=== PATIENT | male | born 1945 | race Caucasian/White ===

== ENCOUNTER 2016-07-05 13:01 | Emergency (ER) | payer OTHER ==
[2016-07-05] MEDS ORDERED: ASPIRIN ONE (13:03)
[2016-07-05] MEDS ORDERED: ASPIRIN PO STA (13:08)
--- NOTE | 2016-07-05 13:17 | EKG Report ---
Test Performed on : 07/05/2016 1:02:08 PM Test Reason : CP Blood Pressure : / mmHG Vent. Rate : 087 BPM Atrial Rate : 087 BPM P-R Int : 112 ms QRS Dur : 098 ms QT Int : 382 ms P-R-T Axes : 019 -31 061 degrees QTc Int : 459 ms Normal sinus rhythm. Left axis deviation Low voltage QRS Incomplete right bundle branch block Cannot rule out Inferior infarct (cited on or before 14-FEB-2014) Abnormal ECG When compared with ECG of 14-FEB-2014 12:43, Questionable change in initial forces of Inferior leads T wave inversion no longer evident in Inferior leads Unconfirmed Result
[2016-07-05 13:18] LABS: MANUAL DIFF NEEDED? NO
[2016-07-05 13:24] LABS: BASO% 0.5 % (0.0-0.8); EOS# 0.04 X1000 (0.0-0.7); EOS% 0.6 % (0.0-10.0); HEMATOCRIT 44.9 % (42.0-52.0); HEMOGLOBIN 15.1 g/dL (14.0-18.0); IMM GRAN# 0.01 X1000 (0.0-0.04); IMM GRAN% 0.2 % (0.0-0.5); LYMPH# 1.91 X1000 (1.2-3.4); LYMPH% 29.3 % (20.5-51.1); MCH 29.8 PG (27-31); MCHC 33.6 g/dL (33-37); MCV 88.6 FL (81-99); MONO# 0.42 X1000 (0.11-0.59); MONO% 6.4 % (1.7-9.3); MPV 10.1 FL (7.4-10.4); PLT 198 X1000 (130-400); RBC 5.07 XMIL (4.7-6.1)
[2016-07-05 13:37] LABS: INR 0.97 (0.86-1.15); PROTIME 13.2 Seconds (12.1-15.5)
[2016-07-05 13:48] LABS: AGAP 14; ALBUMIN 4.5 g/dL (3.5-5.0); ALKALINE PHOSPHATASE 86 U/L (32-122); BUN 12 mg/dL (8-22); CALCIUM 10.1 mg/dL (8.8-10.2); CHLORIDE 100 mmol/L (98-107); CK PROFILE 85 U/L (24-204); COSMO 281; GOT 38 U/L (10-34); GPT 35 U/L (10-44); MAGNESIUM 2.1 mg/dL (1.5-2.7); SODIUM 140 mmol/L (136-145); TCO2 26 mmol/L (25-35); TOTAL PROTEIN 7.4 g/dL (6.3-8.3)
--- NOTE | 2016-07-05 13:49 | ED EKG INTERP ---
EKG Interpretation - EKG Time of EKG reading by physician:: 13:02 EKG Read and Signed by:: Titi Carrera EKG Interpretation (*Must complete 3 of following elements*): Abnormal (cannot rule out inferior infarct, age undetermined) Rate: 87 Rhythm: normal sinus rhythm Comments: left axis deviation; low voltage QRS; incomplete RBBB Attestation - Scribe Verification/Attestation Scribe:: Amalia Artis Acting as Scribe for:: Titi Carrera Scribe documention review:: This chart was documented by a scribe and accurately reflects the service the provider performed and the decisions made by the provider.
--- NOTE | 2016-07-05 14:14 | PROVIDER DOCUMENTATION ---
HPI-Chest Pain - General Source: patient, family () - History of Present Illness-CP Location: reports: epigastric Chest Pain Radiation: reports: no radiation Quality of Pain: reports: pressure Severity in ED: mild Onset/Duration: this morning Timing: gone now Context/Activities at Onset: reports: light activity Modifying Factors: improves with: nothing Associated Symptoms: reports: shortness of breath. denies: abdominal pain, back pain, diaphoresis, dizziness, edema, fatigue, fever/chills, headache, heartburn, nausea, rash, swelling/lump in chest, syncope, vomiting, weakness Nitro Today/Relief: no nitro taken today Aspirin Treatment Today: 81 mg x 1 Prior Chest Pain/Cardiac Workup: reports: heart attack Similar Symptoms Previously?: Yes Recently Seen Here or By Another Healthcare Provider: No <Amalia Artis - Last Filed: 07/05/16 17:54> <Alexus Marinelli - Last Filed: 07/05/16 17:59> <Titi Carrera - Last Filed: 07/05/16 18:03> - General Chief Complaint: Chest Pain Stated Complaint: CHEST PAIN Time Seen by Provider: 07/05/16 14:10 Allergies/Adverse Reactions: Patient Allergies Allergy/AdvReac Type Severity Reaction Status Date / Time amoxicillin [Amoxicillin] Allergy DIARRHEA Verified 07/05/16 13:06 Anesthetics - Amide Type Allergy Unknown Verified 07/05/16 13:06 Anesthetics - Kandi Type- Allergy Unknown Verified 07/05/16 13:06 Parabens [Anesthetics - Kandi Type] Home Medications: Home Medication List Medication Instructions Recorded Confirmed Last Taken Type Fexofenadine [Jeny] 60 mg PO DAILY PRN 12/01/13 09/18/15 12/01/13 History Naproxen Sodium [Aleve] 220 mg PO BID PRN 12/01/13 09/18/15 12/01/13 History Atorvastatin Calcium [Lipitor] 40 mg PO HS 07/16/15 09/18/15 Unknown History Metoprolol Tartrate 25 mg PO BID 07/16/15 09/18/15 Unknown History Prasugrel [Effient] 10 mg PO DAILY 07/16/15 09/18/15 Unknown History Lisinopril 10 mg PO DAILY 09/05/15 09/18/15 Unknown History Aspirin EC 81 mg PO DAILY 09/18/15 09/18/15 Unknown History Nitroglycerin [Nitrostat] 0.4 mg SL DIRECTED 09/18/15 09/18/15 Unknown History - History of Present Illness-CP Nature of Presenting Problem: Pt is 71 y/o M presents to the ED with chest pain. Pt states the pain is in his epigastric region. Pt denies radiation. Pt states he has had prior episodes of the pain but this episode is the worse. Pt states having a SD last year and having one stent placed. Pt states being sweaty and SOB. Pt states the pain started when he was going for his daily walk. Pt states having six prior episode of pain. (Amalia Artis) Review of Systems - Adult - REVIEW OF SYSTEMS - ADULT Constitutional: denies: chills, fever Eyes: denies: blurred vision, double vision Ears, Nose, Mouth & Throat: denies: ear pain, nose pain, throat pain Cardiovascular: reports: chest pain. denies: heart murmur, irregular heart rate Respiratory: denies: cough, shortness of breath, wheezing Gastrointestinal: denies: abdominal pain, diarrhea, nausea, vomiting Genitourinary: denies: dysuria, hematuria Musculoskeletal: denies: bone pain, joint pain, neck pain Integumentary: denies: hives, itching Neurological: denies: dizziness/vertigo, headache/migraines Psychiatric: reports: no symptoms reported Endocrine: reports: no symptoms reported Hematologic/Lymphatic: reports: no symptoms reported Allergic/Immunologic: reports: no symptoms reported All Other Systems: Reviewed and Negative <Amalia Artis - Last Filed: 07/05/16 17:54> Past History - Adult - PAST MEDICAL HISTORY-ADULT Review of Records: reports: Nursing Assessment Review, Medications Reviewed, Social history reviewed & non-contributory. Major Childhood Illnesses: reports: denies history Cardiovascular: reports: hyperlipidemia Respiratory: reports: denies history Gastrointestinal: reports: denies history Obstetrical/Gynecological: reports: denies history Genitourinary: reports: prostate cancer Musculoskeletal: reports: denies history Neurological: reports: denies history Endocrine/Immune: reports: denies history Other Conditions: reports: denies history - PRIOR SURGERIES/PROCEDURES Surgical/Procedure History: reports: orthopedic (extremity) (knee repair x2), other (colon surgery and prostate removed ) - IMMUNIZATION STATUS Childhood Immunizations: See Nurse Assessment Flu Vaccine: See Nurse Assessment - FAMILY HISTORY Family History: reviewed, not pertinent - SOCIAL HISTORY Smoking: denies Substance Use: denies Living Situation: family <Kathryn Artisomi - Last Filed: 07/05/16 17:54> Physical Exam-General - PHYSICAL EXAM-ADULT Initial Vital Signs Reviewed: Yes - CONSTITUTIONAL General Appearance: appears well, alert, no apparent distress - EYES Eyes: PERRL/EOMI, pink conjunctivae, fundi clear, no AV nicking - HEAD, EARS, NOSE, MOUTH & THROAT HENMT: normocephalic/atraumatic, moist mucous membranes, normal ENT inspection, TMs normal, pharynx normal - NECK Neck: non-tender, full range of motion, supple, normal inspection - RESPIRATORY Respiratory: chest non-tender, lungs clear, normal breath sounds, no pleuratic chest pain, no respiratory distress, no accessory muscle use - CARDIOVASCULAR Cardiovascular: normal peripheral pulses, regular rate, rhythm, no edema, no gallop, no JVD, no murmur - GASTROINTESTINAL (ABDOMEN) Abdominal Exam: normal bowel sounds, non tender, soft, no organomegaly, no pulsatile mass - LYMPHATIC Lymphatic: no adenopathy - MUSCULOSKELETAL Back Exam: normal inspection, no CVA tenderness, no vertebral tenderness Extremity: normal range of motion, non-tender, normal gait, normal inspection, no pedal edema, no calf tenderness, normal capillary refill, pelvis stable - SKIN Integumentary: normal color, normal turgor, warm/dry - NEUROLOGIC Neurologic: technology coordinator II-XII nml as tested, grossly normal, no motor/sensory deficits - PSYCHIATRIC Psych/Mental Status: normal mood/affect, normal thought content, normal thought process, oriented x 3 <Amalia Artis - Last Filed: 07/05/16 17:54> Progress - EKG 1 Time of EKG reading by physician:: 15:16 EKG Read and Signed by:: Titi Carrera EKG Interpretation (*Must complete 3 of following elements*): Abnormal Rate: 53 Rhythm: sinus bradycardia with premature atrial complexes Comments: low voltage QRS - XRAY 1 XRAY: Bilateral XRAY Study: Chest Impression: Normal XRAY Interpretation: NAD - CHANGE OF SHIFT REPORT (ED Provider) Report Given and Care Transferred to:: Dr. Severino Time of Transfer: 17:54 Items Pending: Physician Consult/Arrival (Dr. Toussaint) <Amalia Artis - Last Filed: 07/05/16 17:54> - CONSULTS/PCP/HOSPITALIST Notification #1 *Consult/PCP/Hospitalist*: Dr. Toussaint[facility] Time Discussed: 17:59 Consult Disposition: F/U in office <Alexus Marinelli - Last Filed: 07/05/16 17:59> <Titi Carrera - Last Filed: 07/05/16 18:03> - PLAN OF CARE/RESULTS Progress/Plan/Lab Results: Laboratory Tests 07/05/16 07/05/16 07/05/16 13:09 13:09 13:09 WBC RBC Hgb Hct MCV MCH MCHC RDW Std Deviation Plt Count MPV Immature Gran % (Auto) Neut % (Auto) Lymph % (Auto) [place] % (Auto) Eos % (Auto) Baso % (Auto) Immature Gran # (Auto) Neut # (Auto) Lymph # (Auto) [place] # (Auto) Eos # (Auto) Baso # (Auto) PT INR APTT (Factor Assay) D-Dimer Sodium 140 Potassium 4.0 Chloride 100 Carbon Dioxide 26 Anion Gap 14 BUN 12 Creatinine 1.1 Estimated GFR/1.73 m2 > 60 BUN/Creatinine Ratio 11 Glucose 130 H Calculated Osmolality 281 Calcium 10.1 Magnesium 2.1 Total Bilirubin 0.50 AST 38 H ALT 35 Alkaline Phosphatase 86 Creatine Kinase 85 Troponin T < 0.010 [id number]-Lieemuhmeyk Pept 182 Total Protein 7.4 Albumin 4.5 Globulin 3.0 Albumin/Globulin Ratio 2.0 07/05/16 07/05/16 13:09 13:09 WBC 6.52 RBC 5.07 Hgb 15.1 Hct 44.9 MCV 88.6 MCH 29.8 MCHC 33.6 RDW Std Deviation 13.7 Plt Count 198 MPV 10.1 Immature Gran % (Auto) 0.2 Neut % (Auto) 63.0 Lymph % (Auto) 29.3 [place] % (Auto) 6.4 Eos % (Auto) 0.6 Baso % (Auto) 0.5 Immature Gran # (Auto) 0.01 Neut # (Auto) 4.11 Lymph # (Auto) 1.91 [place] # (Auto) 0.42 Eos # (Auto) 0.04 Baso # (Auto) 0.03 PT 13.2 INR 0.97 APTT (Factor Assay) 36.0 D-Dimer 0.48 Sodium Potassium Chloride Carbon Dioxide Anion Gap BUN Creatinine Estimated GFR/1.73 m2 BUN/Creatinine Ratio Glucose Calculated Osmolality Calcium Magnesium Total Bilirubin AST ALT Alkaline Phosphatase Creatine Kinase Troponin T [id number]-[id number]-Uizhxiyfgsq Pept Total Protein Albumin Globulin Albumin/Globulin Ratio Orders Category Date Time Status Cardiac Monitoring DIRECTED Care 07/05/16 13:08 Active Oxygen Therapy- ED Nursing DIRECTED Care 07/05/16 13:08 Active Saline Loc NOW Care 07/05/16 13:08 Active CHEST-2 VIEWS [RAD] Stat Exams 07/05/16 13:08 Taken CBC WITH ELECTRONIC DIFF [HEME] Stat Lab 07/05/16 13:09 Completed CK PROFILE [SP CHEM] Stat Lab 07/05/16 13:09 Completed COMPREHENSIVE METABOLIC PANEL [CHEM] Stat Lab 07/05/16 13:[address] D-D[address]ER [address] [COAG] Stat Lab 07/05/16 13:09 Completed MAGNESIUM [CHEM] Stat Lab 07/05/16 13:09 Completed PRO B-NATRIURETIC PEPTIDE Stat Lab 07/05/16 13:09 Com[address]IME WITH INR PL [COAG] Stat Lab 07/05/16 13:[address] [COAG] Stat Lab 07/05/16 13:09 Completed TROPONIN T Stat Lab 07/05/16 13:09 Completed Aspirin Med 07/05/16 13:08 Discontinued 325 mg PO STAT STA EKG [EKG] Stat Ther 07/05/16 13:08 Draft Vital Signs - 24 hr 07/05/16 07/05/16 13:02 13:40 Temperature 97.1 F L Pulse Rate 89 64 Respiratory 16 16 Rate Blood Pressure 130/87 151/72 O2 Sat by Pulse 100 99 Oximetry Laboratory Tests 07/05/16 07/05/16 07/05/16 13:09 13:09 13:09 WBC RBC Hgb Hct MCV MCH MCHC RDW Std Deviation Plt Count MPV Immature Gran % (Auto) Neut % (Auto) Lymph % (Auto) [place] % (Auto) Eos % (Auto) Baso % (Auto) Immature Gran # (Auto) Neut # (Auto) Lymph # (Auto) [place] # (Auto) Eos # (Auto) Baso # (Auto) PT INR APTT (Factor Assay) D-Dimer Sodium 140 Potassium 4.0 Chloride 100 Carbon Dioxide 26 Anion Gap 14 BUN 12 Creatinine 1.1 Estimated GFR/1.73 m2 > 60 BUN/Creatinine Ratio 11 Glucose 130 H Calculated Osmolality 281 Calcium 10.1 Magnesium 2.1 Total Bilirubin 0.50 AST 38 H ALT 35 Alkaline Phosphatase 86 Creatine Kinase 85 Troponin T < 0.010 Mqc-K-Cljmpkjujtt Pept 182 Total Protein 7.4 Albumin 4.5 Globulin 3.0 Albumin/Globulin Ratio 2.0 07/05/16 07/05/16 13:09 13:09 WBC 6.52 RBC 5.07 Hgb 15.1 Hct 44.9 MCV 88.6 MCH 29.8 MCHC 33.6 RDW Std Deviation 13.7 Plt Count 198 MPV 10.1 Immature Gran % (Auto) 0.2 Neut % (Auto) 63.0 Lymph % (Auto) 29.3 [place] % (Auto) 6.4 Eos % (Auto) 0.6 Baso % (Auto) 0.5 Immature Gran # (Auto) 0.01 Neut # (Auto) 4.11 Lymph # (Auto) 1.91 [place] # (Auto) 0.42 Eos # (Auto) 0.04 Baso # (Auto) 0.03 PT 13.2 INR 0.97 APTT (Factor Assay) 36.0 D-Dimer 0.48 Sodium Potassium Chloride Carbon Dioxide Anion Gap BUN Creatinine Estimated GFR/1.73 m2 BUN/Creatinine Ratio Glucose Calculated Osmolality Calcium Magnesium Total Bilirubin AST ALT Alkaline Phosphatase Creatine Kinase Troponin T Uhj-A-Itecninlzyb Pept Total Protein Albumin Globulin Albumin/Globulin Ratio (Amalia Artis) Departure <Amalia Artis - Last Filed: 07/05/16 17:54> <Alexus Marinelli - Last Filed: 07/05/16 17:59> - Departure Time of Disposition Order: 18:02 Certified Medical Emergency: Emergent <Titi Carrera - Last Filed: 07/05/16 18:03> - Departure DIAGNOSIS: Chest pain Qualifiers: Chest pain type: unspecified Qualified Code(s): R07.9 - Chest pain, unspecified Disposition: HOME 01 Condition: Good Additional Instructions: Call Dr. Toussaint in the morning for a follow up. ED Follow Up Instructions: You have been treated by a care provider in the Emergency Department. These instructions are being provided to you so you can have an understanding of how to care for yourself upon discharge. Upon discharge from the Emergency Department, you are responsible for making arrangements for follow-up care by a physician of your choice. Take all prescribed medications as directed. Return to the Emergency Department immediately for any new or worsening symptoms. You may call the Physician Referral phone number at [phone] to obtain a list of Physicians who are taking new patients. Referrals: [facility] [Primary Care Provider] - Flynn Toussaint MD [STAFF PHYSICIAN] - Attestation - Scribe Verification/Attestation Scribe:: Amalia Artis Acting as Scribe for:: Titi Carrera Scribe documention review:: This chart was documented by a scribe and accurately reflects the service the provider performed and the decisions made by the provider. - Scribe Verification/Attestation #2 Shift Change Time: 17:55 Scribe Name: Alexus Marinelli Acting as Scribe for:: Kamran Severino <Amalia Artis - Last Filed: 07/05/16 17:54> Physician Attestation
--- NOTE | 2016-07-05 15:24 | EKG Report ---
Test Performed on : 07/05/2016 3:16:31 PM Test Reason : REPEAT Blood Pressure : / mmHG Vent. Rate : 053 BPM Atrial Rate : 053 BPM P-R Int : 168 ms QRS Dur : 098 ms QT Int : 442 ms P-R-T Axes : 061 -20 039 degrees QTc Int : 414 ms Sinus bradycardia. with premature atrial complexes. Low voltage QRS Borderline ECG When compared with ECG of 05-JUL-2016 13:02, (Unconfirmed) premature atrial complexes. are now present Vent. rate has decreased BY 34 BPM Unconfirmed Result
--- NOTE | 2016-07-05 16:51 | Diag Imaging Result Document ---
PROCEDURE NAME: CHEST-2 VIEWS - 07/05/2016 TWO VIEWS OF THE CHEST: FINDINGS AND IMPRESSION: Normal chest.
[2016-07-05 18:10] VITALS: BP 140/065
== END 2016-07-05 18:19 | disposition home or self-care (01) ==
LOC: P.ED 13:01
DX: R07.89 Other chest pain (principal); R94.31 Abnormal electrocardiogram [ECG] [EKG]; R10.13 Epigastric pain; R06.02 Shortness of breath; R61 Generalized hyperhidrosis; E78.5 Hyperlipidemia, unspecified; I25.2 Old myocardial infarction; Z79.899 Other long term (current) drug therapy; Z79.82 Long term (current) use of aspirin; Z95.5 Presence of coronary angioplasty implant and graft; Z85.46 Personal history of malignant neoplasm of prostate
CPT/HCPCS: 71020; 80053; 82550; 83735; 83880; 84484; 85025; 85379; 85610; 85730; 93005; 99284